=== PATIENT | female | born 1935 | race Caucasian/White ===

== ENCOUNTER 2020-08-16 10:44 | Inpatient (IN) ==
[2020-08-16 14:31] LABS: Basophils % 0.2 %; Hematocrit 36.9 % (35.3-44.9); Hemoglobin 12.3 g/dL (11.5-15.4); Immature Granulocytes % 1.3 % (0-4); Lymphocytes # 0.4 K/mcL (0.6-4.6); Lymphocytes % 6.8 %; Mean Corpuscular HGB Conc 33.3 g/dL (31.6-35.5); Mean Corpuscular Hemoglobin 32.1 pg (28.0-33.3); Mean Corpuscular Volume 96.3 fL (83.0-100.0); Mean Platelet Volume 9.2 fL (9.4-12.4); Monocytes # 0.2 K/mcL (0.0-1.3); Monocytes % 3.2 %; Neutrophils # 4.7 K/mcL (1.6-8.9); Nucleated Red Blood Cells 0.6 /100 WBC (0); Platelet Count 114 K/mcL (140-400); Red Blood Count 3.83 M/mcL (3.82-4.97); Red Cell Distribution Width 13.8 % (11.5-14.5); Segmented Neutrophils % 88.5 %; White Blood Count 5.3 K/mcL (4.3-11.1)
[2020-08-16 14:38] LABS: INR 1.2
[2020-08-16 14:41] LABS: Activated Partial Thrombo Time 36.1 Seconds (26.0-36.0); Albumin 2.9 g/dL (3.5-5.7); Bilirubin,Direct 0.1 mg/dL (0.0-0.2); Bilirubin,Indirect 0.3 mg/dL (0.0-1.0); Bilirubin,Total 0.4 mg/dL (0.3-1.0); Globulin 2.8 g/dL (2.4-3.5); Potassium 4.5 mEq/L (3.5-5.1); Total Protein 5.7 g/dL (6.4-8.9)
[2020-08-16 15:08] LABS: Toxic Granulation Present (Not Present)
[2020-08-16] MEDS ORDERED: Pantoprazole 40 MG VIAL IVP ONE (15:37)
[2020-08-16] MEDS: Pantoprazole 40 MG in 0.9 % Sodium Chloride Mini Bag 100 ML IVC SCH ×3 (16:03→23:44)
[2020-08-16] MEDS ORDERED: Naloxone 0.4 MG/ML INJ IVP PRN (16:18)
[2020-08-16] MEDS ORDERED: Fluticasone Propionate Nasal 50 MCG/SPRAY BOTTLE NS PRN (17:31)
[2020-08-16] MEDS ORDERED: Ondansetron ODT 4 MG TAB.RAPDIS PO PRN (17:31)
[2020-08-16] MEDS ORDERED: Nystatin POWDER 30 GM BOTTLE TP PRN (17:31)
[2020-08-16] MEDS ORDERED: Dextrose Gel 15 GM/37.5 ML TUBE PO PRN ×2 (18:14)
[2020-08-16] MEDS ORDERED: *HR* Dextrose 50 % in Water (Vial) 50 ML VIAL IVP PRN (18:14)
[2020-08-16] MEDS ORDERED: D5% in Water 1,000 ML IVC PRN (18:14)
[2020-08-16] MEDS: Insulin LISPRO 300 UNITS/3 ML VIAL SUBQ SCH (20:00)
[2020-08-16] MEDS: Furosemide 20 MG TABLET PO SCH (20:03)
[2020-08-16] MEDS: Gabapentin 100 MG CAPSULE PO SCH (20:03)
[2020-08-17] MEDS: Pantoprazole 40 MG in 0.9 % Sodium Chloride Mini Bag 100 ML IVC SCH ×4 (04:22→19:29)
[2020-08-17 05:28] LABS: Hematocrit 34.4 % (35.3-44.9); Hemoglobin 11.3 g/dL (11.5-15.4); Mean Corpuscular HGB Conc 32.8 g/dL (31.6-35.5); Mean Corpuscular Hemoglobin 31.6 pg (28.0-33.3); Mean Corpuscular Volume 96.1 fL (83.0-100.0); Mean Platelet Volume 9.3 fL (9.4-12.4); Nucleated Red Blood Cells 0.6 /100 WBC (0); Platelet Count 107 K/mcL (140-400); Red Blood Count 3.58 M/mcL (3.82-4.97); Red Cell Distribution Width 13.6 % (11.5-14.5); White Blood Count 4.7 K/mcL (4.3-11.1)
[2020-08-17 05:46] LABS: Calcium 8.6 mg/dL (8.6-10.3); Potassium 4.7 mEq/L (3.5-5.1)
[2020-08-17 05:58] LABS: Lymphocytes # 0.2 K/mcL (0.6-4.6); Monocytes # 0.1 K/mcL (0.0-1.3); Neutrophils # 4.4 K/mcL (1.6-8.9); Platelet Estimate Slight Decrease (Normal); Toxic Granulation Present (Not Present)
[2020-08-17] MEDS: Insulin LISPRO 300 UNITS/3 ML VIAL SUBQ SCH ×4 (08:24→19:27)
[2020-08-17] MEDS: Letrozole 2.5 MG TABLET PO SCH (08:25)
[2020-08-17] MEDS: Furosemide 20 MG TABLET PO SCH ×3 (08:26→22:13)
[2020-08-17] MEDS: Gabapentin 100 MG CAPSULE PO SCH ×3 (08:26→22:13)
[2020-08-17 12:52] LABS: Adenovirus Not Detected (Not Detect); Bordetella Pertussis Not Detected (Not Detect); Chlamydophila pneumoniae Not Detected (Not Detect); Coronavirus 229E Not Detected (Not Detect); Coronavirus HKU1 Not Detected (Not Detect); Coronavirus NL63 Not Detected (Not Detect); Coronavirus OC43 Not Detected (Not Detect); Human Metapneumovirus Not Detected (Not Detect); Human Rhinovirus/Enterovirus Not Detected (Not Detect); Influenza A Subtype 2009 H1 Not Detected (Not Detect); Influenza B Not Detected (Not Detect); Mycoplasma pneumoniae Not Detected (Not Detect); Parainfluenza Virus 1 Not Detected (Not Detect); Parainfluenza Virus 2 Not Detected (Not Detect); Parainfluenza Virus 3 Not Detected (Not Detect); Parainfluenza Virus 4 Not Detected (Not Detect); Respiratory Syncytial Virus Not Detected (Not Detect); SARS-CoV-2 Not Detected (Not Detect)
[2020-08-17] MEDS ORDERED: Lidocaine -MPF 2% 5 ML VIAL ONE (13:22)
[2020-08-17] MEDS ORDERED: 0.9 % Sodium Chloride 1,000 ML ONE (13:32)
[2020-08-17] MEDS: 0.9 % Sodium Chloride 1,000 ML IVC SCH (13:42)
[2020-08-17] MEDS ORDERED: *HR* Metoprolol 5 MG/5 ML VIAL IVP ONE (14:17)
[2020-08-17 17:13] LABS: Hematocrit 33.3 % (35.3-44.9); Hemoglobin 10.8 g/dL (11.5-15.4)
[2020-08-17] MEDS: DilTIAZem 50 MG/50 ML IV.SOLN IVC SCH (22:12)
[2020-08-17 22:53] LABS: Hemoglobin 10.8 g/dL (11.5-15.4)
[2020-08-18] MEDS: Pantoprazole 40 MG in 0.9 % Sodium Chloride Mini Bag 100 ML IVC SCH ×4 (01:52→17:19)
[2020-08-18] MEDS: 0.9 % Sodium Chloride 1,000 ML IVC SCH ×2 (02:07→14:06)
[2020-08-18] MEDS ORDERED: *HR* Metoprolol 5 MG/5 ML VIAL IVP ONE ×3 (02:44→21:31)
[2020-08-18 03:39] LABS: Basophils % 0.2 %; Immature Granulocytes % 1.3 % (0-4); Red Cell Distribution Width 13.9 % (11.5-14.5)
[2020-08-18 03:41] LABS: Hematocrit 31.1 % (35.3-44.9); Immature Platelets 1.5 % (1.1-6.1); Lymphocytes # 0.3 K/mcL (0.6-4.6); Lymphocytes % 5.5 %; Mean Corpuscular HGB Conc 32.2 g/dL (31.6-35.5); Mean Corpuscular Hemoglobin 31.1 pg (28.0-33.3); Mean Corpuscular Volume 96.6 fL (83.0-100.0); Mean Platelet Volume 9.1 fL (9.4-12.4); Monocytes # 0.3 K/mcL (0.0-1.3); Monocytes % 4.9 %; Neutrophils # 4.7 K/mcL (1.6-8.9); Nucleated Red Blood Cells 0.8 /100 WBC (0); Platelet Count 111 K/mcL (140-400); Red Blood Count 3.22 M/mcL (3.82-4.97); Segmented Neutrophils % 88.1 %; White Blood Count 5.3 K/mcL (4.3-11.1)
[2020-08-18 03:59] LABS: Calcium 8.2 mg/dL (8.6-10.3)
[2020-08-18 04:35] LABS: Platelet Estimate Slight Decrease (Normal)
[2020-08-18] MEDS: Furosemide 20 MG TABLET PO SCH (08:00)
[2020-08-18] MEDS: Insulin LISPRO 300 UNITS/3 ML VIAL SUBQ SCH ×4 (08:43→20:12)
[2020-08-18] MEDS: Letrozole 2.5 MG TABLET PO SCH (08:43)
[2020-08-18] MEDS: Gabapentin 100 MG CAPSULE PO SCH ×3 (08:43→20:13)
[2020-08-18] MEDS ORDERED: Lidocaine -MPF 1% 5 ML AMPUL INFILT ONE (08:56)
[2020-08-18] MEDS: DilTIAZem 50 MG/50 ML IV.SOLN IVC SCH (10:21)
[2020-08-18] MEDS ORDERED: *HR* Vasopressin 20 UNIT/ML VIAL ONE (12:45)
[2020-08-18] MEDS ORDERED: Ondansetron 4 MG/2 ML VIAL ONE (12:57)
[2020-08-18 12:59] LABS: Hematocrit 29.5 % (35.3-44.9); Hemoglobin 9.4 g/dL (11.5-15.4)
[2020-08-18] MEDS ORDERED: Simethicone 40 MG/0.6 ML MLS IR ONE (13:16)
[2020-08-18 13:18] LABS: BUN/Creatinine Ratio 73 (6-26); Blood Urea Nitrogen 75 mg/dL (8-23); Carbon Dioxide 19 mEq/L (23-29); Chloride 107 mEq/L (98-107); Glucose 262 mg/dL (70-105); Osmolality,Calculated 315 (280-300); Potassium 3.6 mEq/L (3.5-5.1); Sodium 137 mEq/L (136-145); eGFR For African Americans > 60 (> 60); eGFR For Non-African Americans 51 (> 60)
[2020-08-18] MEDS ORDERED: *HR* Propofol 200 MG/20 ML VIAL IVP ONE (13:47)
[2020-08-18] MEDS ORDERED: Perflutren Lipid Microsphere 1.3 ML in 0.9 % Sodium Chloride 8.7 ML IVP PRN (14:18)
[2020-08-18] MEDS: cefTRIAXone 1,000 MG in Water for inj. (sterile) 10 ML IVP SCH (17:59)
[2020-08-18 18:30] LABS: Hematocrit 29.4 % (35.3-44.9); Hemoglobin 9.4 g/dL (11.5-15.4)
[2020-08-18] MEDS ORDERED: 0.9 % Sodium Chloride 250 ML IV ONE (18:56)
[2020-08-19 00:16] LABS: Hemoglobin 9.2 g/dL (11.5-15.4); Red Blood Count 2.97 M/mcL (3.82-4.97)
[2020-08-19 00:18] LABS: Hematocrit 28.8 % (35.3-44.9); Immature Platelets 1.6 % (1.1-6.1); Mean Corpuscular HGB Conc 31.9 g/dL (31.6-35.5); Mean Platelet Volume 9.1 fL (9.4-12.4); Monocytes # 0.1 K/mcL (0.0-1.3); Nucleated Red Blood Cells 1.3 /100 WBC (0); Platelet Count 102 K/mcL (140-400); Red Cell Distribution Width 14.3 % (11.5-14.5); White Blood Count 3.9 K/mcL (4.3-11.1)
[2020-08-19 00:29] LABS: BUN/Creatinine Ratio 75 (6-26); Blood Urea Nitrogen 68 mg/dL (8-23); Calcium 7.9 mg/dL (8.6-10.3); Carbon Dioxide 19 mEq/L (23-29); Chloride 108 mEq/L (98-107); Glucose 204 mg/dL (70-105); Osmolality,Calculated 316 (280-300); Potassium 3.6 mEq/L (3.5-5.1); Sodium 140 mEq/L (136-145); eGFR For African Americans > 60 (> 60); eGFR For Non-African Americans 59 (> 60)
[2020-08-19 00:43] LABS: Lymphocytes # 0.3 K/mcL (0.6-4.6); Neutrophils # 3.5 K/mcL (1.6-8.9); Platelet Estimate Slight Decrease (Normal); Polychromasia 1+ (Not Present); Toxic Granulation Present (Not Present)
[2020-08-19] MEDS: DilTIAZem 50 MG/50 ML IV.SOLN IVC SCH (03:04)
[2020-08-19] MEDS: 0.9 % Sodium Chloride 1,000 ML IVC SCH ×2 (03:38→17:23)
[2020-08-19] MEDS: Insulin LISPRO 300 UNITS/3 ML VIAL SUBQ SCH ×4 (10:51→21:33)
[2020-08-19] MEDS: Pantoprazole 40 MG VIAL IVP SCH (10:52)
[2020-08-19] MEDS: *HR* Metoprolol 5 MG/5 ML VIAL IVP SCH ×3 (10:53→17:09)
[2020-08-19] MEDS: Metoprolol XL (24 HR) Succ 25 MG TAB.ER.24H PO SCH ×2 (11:01→21:32)
[2020-08-19] MEDS: Gabapentin 100 MG CAPSULE PO SCH ×3 (11:01→21:32)
[2020-08-19] MEDS: Letrozole 2.5 MG TABLET PO SCH (11:01)
[2020-08-19] MEDS: cefTRIAXone 1,000 MG in Water for inj. (sterile) 10 ML IVP SCH (17:09)
[2020-08-19] MEDS: *HR* OxyCODONE Immed Rel 5 MG TABLET PO PRN (21:33)
[2020-08-19] MEDS: *HR* Dabigatran 150 MG CAPSULE PO SCH (21:33)
[2020-08-20] MEDS: *HR* Metoprolol 5 MG/5 ML VIAL IVP SCH ×2 (00:28→06:17)
[2020-08-20 02:15] LABS: BUN/Creatinine Ratio 77 (6-26); Blood Urea Nitrogen 54 mg/dL (8-23); Calcium 7.9 mg/dL (8.6-10.3); Carbon Dioxide 15 mEq/L (23-29); Chloride 111 mEq/L (98-107); Glucose 76 mg/dL (70-105); Osmolality,Calculated 306 (280-300); Sodium 141 mEq/L (136-145); eGFR For African Americans > 60 (> 60); eGFR For Non-African Americans > 60 (> 60)
[2020-08-20 04:21] LABS: Red Cell Distribution Width 14.6 % (11.5-14.5)
[2020-08-20 04:23] LABS: Hematocrit 27.5 % (35.3-44.9); Hemoglobin 8.6 g/dL (11.5-15.4); Immature Platelets 1.6 % (1.1-6.1); Mean Corpuscular HGB Conc 31.3 g/dL (31.6-35.5); Mean Corpuscular Hemoglobin 30.8 pg (28.0-33.3); Mean Corpuscular Volume 98.6 fL (83.0-100.0); Mean Platelet Volume 9.3 fL (9.4-12.4); Red Blood Count 2.79 M/mcL (3.82-4.97); White Blood Count 3.9 K/mcL (4.3-11.1)
[2020-08-20] MEDS: DilTIAZem 50 MG/50 ML IV.SOLN IVC SCH (04:48)
[2020-08-20] MEDS: 0.9 % Sodium Chloride 1,000 ML IVC SCH ×2 (06:32→19:21)
[2020-08-20] MEDS: Insulin LISPRO 300 UNITS/3 ML VIAL SUBQ SCH ×4 (07:28→20:00)
[2020-08-20] MEDS: *HR* Dabigatran 150 MG CAPSULE PO SCH ×2 (07:45→20:27)
[2020-08-20] MEDS: Letrozole 2.5 MG TABLET PO SCH (07:45)
[2020-08-20] MEDS: Pantoprazole 40 MG VIAL IVP SCH (07:46)
[2020-08-20] MEDS: Gabapentin 100 MG CAPSULE PO SCH ×3 (07:46→20:26)
[2020-08-20] MEDS: Metoprolol XL (24 HR) Succ 25 MG TAB.ER.24H PO SCH ×2 (07:46→20:26)
[2020-08-20] MEDS: cefTRIAXone 1,000 MG in Water for inj. (sterile) 10 ML IVP SCH (16:03)
[2020-08-20] MEDS ORDERED: *HR* Metoprolol 5 MG/5 ML VIAL IVP ONE (18:17)
[2020-08-20] MEDS: dexAMETHasone 4 MG TABLET PO SCH (20:26)
[2020-08-21 04:29] LABS: Hematocrit 26.7 % (35.3-44.9); Hemoglobin 8.4 g/dL (11.5-15.4); Mean Corpuscular HGB Conc 31.5 g/dL (31.6-35.5)
[2020-08-21 04:31] LABS: Immature Platelets 1.9 % (1.1-6.1); Mean Corpuscular Hemoglobin 31.7 pg (28.0-33.3); Mean Corpuscular Volume 100.8 fL (83.0-100.0); Mean Platelet Volume 9.4 fL (9.4-12.4); Red Blood Count 2.65 M/mcL (3.82-4.97); Red Cell Distribution Width 14.8 % (11.5-14.5); White Blood Count 3.4 K/mcL (4.3-11.1)
[2020-08-21] MEDS: 0.9 % Sodium Chloride 1,000 ML IVC SCH ×2 (08:09→23:27)
[2020-08-21] MEDS: Pantoprazole 40 MG VIAL IVP SCH (08:10)
[2020-08-21] MEDS: Insulin LISPRO 300 UNITS/3 ML VIAL SUBQ SCH ×4 (08:10→20:39)
[2020-08-21] MEDS: *HR* OxyCODONE Immed Rel 5 MG TABLET PO PRN (08:11)
[2020-08-21] MEDS: dexAMETHasone 4 MG TABLET PO SCH ×2 (08:36→20:23)
[2020-08-21] MEDS: Gabapentin 100 MG CAPSULE PO SCH ×3 (08:46→20:23)
[2020-08-21] MEDS: Metoprolol XL (24 HR) Succ 25 MG TAB.ER.24H PO SCH ×2 (08:46→20:23)
[2020-08-21] MEDS: *HR* Dabigatran 150 MG CAPSULE PO SCH ×2 (08:46→20:23)
[2020-08-21] MEDS: Letrozole 2.5 MG TABLET PO SCH (08:46)
[2020-08-21] MEDS: cefTRIAXone 1,000 MG in Water for inj. (sterile) 10 ML IVP SCH (18:27)
[2020-08-21] MEDS ORDERED: *HR* HYDROmorphone 2 MG/ML SYRINGE IVP PRN (19:55)
[2020-08-21] MEDS ORDERED: *HR* OxyCODONE Immed Rel 5 MG TABLET PO PRN (19:58)
[2020-08-22] MEDS: Insulin LISPRO 300 UNITS/3 ML VIAL SUBQ SCH ×4 (07:39→21:09)
[2020-08-22] MEDS: dexAMETHasone 4 MG TABLET PO SCH ×2 (08:28→21:08)
[2020-08-22] MEDS: Letrozole 2.5 MG TABLET PO SCH (08:28)
[2020-08-22] MEDS: *HR* Dabigatran 150 MG CAPSULE PO SCH ×2 (08:29→21:08)
[2020-08-22] MEDS: Gabapentin 100 MG CAPSULE PO SCH ×3 (08:29→21:08)
[2020-08-22] MEDS: Metoprolol XL (24 HR) Succ 25 MG TAB.ER.24H PO SCH ×2 (08:29→21:09)
[2020-08-22] MEDS: Pantoprazole 40 MG VIAL IVP SCH (10:09)
[2020-08-22] MEDS ORDERED: Fluconazole 40 MG/ML UDC PO ONE (15:00)
[2020-08-22] MEDS ORDERED: SODIUM CHLORIDE/NAHCO3/KCL/PEG 4,000 ML SOLN.RECON PO ONE (17:00)
[2020-08-22] MEDS: 0.9 % Sodium Chloride 1,000 ML IVC SCH (18:14)
[2020-08-22] MEDS: cefTRIAXone 1,000 MG in Water for inj. (sterile) 10 ML IVP SCH (18:26)
[2020-08-23] MEDS: 0.9 % Sodium Chloride 1,000 ML IVC SCH (01:56)
[2020-08-23] MEDS: Pantoprazole 40 MG VIAL IVP SCH (08:49)
[2020-08-23] MEDS: Insulin LISPRO 300 UNITS/3 ML VIAL SUBQ SCH ×2 (08:50→12:16)
[2020-08-23] MEDS ORDERED: Fluconazole 40 MG/ML UDC PO SCH (09:00)
[2020-08-23] MEDS: Gabapentin 100 MG CAPSULE PO SCH ×2 (09:07→15:11)
[2020-08-23] MEDS: Letrozole 2.5 MG TABLET PO SCH (09:07)
[2020-08-23] MEDS: dexAMETHasone 4 MG TABLET PO SCH (09:07)
[2020-08-23] MEDS: Metoprolol XL (24 HR) Succ 25 MG TAB.ER.24H PO SCH (09:08)
[2020-08-23] MEDS: *HR* Dabigatran 150 MG CAPSULE PO SCH (09:08)
[2020-08-23 13:10] LABS: Influenza A PCR Negative (Negative); Influenza B PCR Negative (Negative); Resp. Syncytial Virus PCR Negative (Negative)
[2020-08-23 13:16] LABS: SARS-CoV-2 by PCR (In House) Negative (Negative)
[2020-08-23 14:42] VITALS: BP 146/80
== END 2020-08-23 17:11 | DRG 378 ==
LOC: EMEROOARM 10:44 → 3BNU 10:44 → SUATTDRO 08-17 14:32
PROVIDERS: ADMIT Internal Medicine; ATTEND Internal Medicine